=== PATIENT | female | born 1985 | race Caucasian/White ===

== ENCOUNTER 2017-12-16 13:59 | Emergency (ER) | payer MEDICAID ==
[~2017-12-16] VITALS: Ht 167.6 cm; Wt 122.7 kg
[2017-12-16 14:45] VITALS: BP 142/81
== END 2017-12-16 14:40 | disposition home or self-care (01) ==
LOC: ED 13:59
DX: S50.811A Abrasion of right forearm, initial encounter (principal); S61.441A Puncture wound with foreign body of right hand, initial encounter; W25.XXXA Contact with sharp glass, initial encounter; W45.8XXA Other foreign body or object entering through skin, initial encounter; Y92.009 Unspecified place in unspecified non-institutional (private) residence as the place of occurrence of the external cause; Z23 Encounter for immunization
CPT/HCPCS: 90715

== ENCOUNTER 2018-02-27 06:53 | Emergency (ER) | payer MEDICAID ==
[~2018-02-27] VITALS: Ht 167.6 cm; Wt 122.7 kg
[2018-02-27] MEDS ORDERED: ELIMITE60 G1 TP (07:30)
[2018-02-27] MEDS ORDERED: PREDNISONE20 M1 PO (07:30)
[2018-02-27 07:58] VITALS: BP 146/80
== END 2018-02-27 07:56 | disposition home or self-care (01) ==
LOC: ED 06:53
DX: S40.862A Insect bite (nonvenomous) of left upper arm, initial encounter (principal); S40.861A Insect bite (nonvenomous) of right upper arm, initial encounter; S80.862A Insect bite (nonvenomous), left lower leg, initial encounter; S80.861A Insect bite (nonvenomous), right lower leg, initial encounter; W57.XXXA Bitten or stung by nonvenomous insect and other nonvenomous arthropods, initial encounter; B86 Scabies; Y92.129 Unspecified place in nursing home as the place of occurrence of the external cause; Y99.0 Civilian activity done for income or pay; I10 Essential (primary) hypertension; F17.210 Nicotine dependence, cigarettes, uncomplicated
CPT/HCPCS: J1200; J2930

== ENCOUNTER 2018-05-13 17:45 | Emergency (ER) | payer MEDICAID ==
[~2018-05-13] VITALS: Ht 167.6 cm; Wt 118.2 kg
[~2018-05-13 17:45] MED LIST: ELIMITE60 G1 TP; PREDNISONE20 M1 PO
[2018-05-13 19:03] VITALS: BP 137/71
== END 2018-05-13 19:04 | disposition home or self-care (01) ==
LOC: ED 17:45
DX: M72.2 Plantar fascial fibromatosis (principal)

== ENCOUNTER 2018-08-21 05:37 | Emergency (ER) | payer MEDICAID ==
[2018-08-21] MEDS ORDERED: MULTIVITAMIN1 SGL PO (05:43)
[2018-08-21] MEDS ORDERED: PENICILLIN-VK500 M1 PO (06:46)
[2018-08-21] MEDS ORDERED: NAPROSYN500 M1 PO (06:46)
[2018-08-21 06:58] VITALS: BP 136/84
== END 2018-08-21 06:58 | disposition home or self-care (01) ==
LOC: ED 05:37
DX: S02.5XXA Fracture of tooth (traumatic), initial encounter for closed fracture (principal); F32.9 Major depressive disorder, single episode, unspecified; F41.9 Anxiety disorder, unspecified; F17.210 Nicotine dependence, cigarettes, uncomplicated; Z98.51 Tubal ligation status; Z90.89 Acquired absence of other organs
CPT/HCPCS: J1885

== ENCOUNTER 2020-01-02 09:03 | Outpatient (RCR) | payer OTHER ==
[~2020-01-02 09:03] MED LIST changes: +MULTIVITAMIN1 SGL PO; +NAPROSYN500 M1 PO; +PENICILLIN-VK500 M1 PO
== END 2020-02-17 | disposition home or self-care (01) ==
LOC: PT
DX: M25.512 Pain in left shoulder (principal)

== ENCOUNTER 2020-07-06 10:59 | Outpatient (RCR) | payer BC | END 2020-10-04 | disposition still patient (30) | LOC: PT | DX: M75.20 Bicipital tendinitis, unspecified shoulder (principal); M75.40 Impingement syndrome of unspecified shoulder; Z98.890 Other specified postprocedural states ==

== ENCOUNTER 2021-01-21 13:32 | Emergency (ER) | payer OTHER ==
[2021-01-21 13:40] VITALS: BP 164/91
[2021-01-21] MEDS ORDERED: TRAMADOL 50 MG TAB PO (14:03)
[2021-01-21] MEDS ORDERED: AUGMENTIN 875-1 EAC1 PO (14:03)
== END 2021-01-21 14:50 | disposition home or self-care (01) ==
LOC: ED 13:32
DX: K04.7 Periapical abscess without sinus (principal); K02.9 Dental caries, unspecified; F17.200 Nicotine dependence, unspecified, uncomplicated

== ENCOUNTER 2021-06-26 01:55 | Emergency (ER) | payer OTHER ==
[~2021-06-26] VITALS: Ht 167.6 cm; Wt 118.2 kg
[~2021-06-26 01:55] MED LIST changes: +AUGMENTIN 875-1 EAC1 PO; +TRAMADOL 50 MG TAB PO
[2021-06-26] MEDS ORDERED: ONE DAILY WOME1 EACH PO (02:05)
[2021-06-26 03:25] LABS: BASO # 0.05 K/mm3 (0.02-0.10); EOS # 0.21 K/mm3 (0.04-0.40); EOS % 2.3 % (1.0-5.0); HEMATOCRIT 40.5 % (37.0-47.0); HEMOGLOBIN 13.5 g/dL (12.5-16.0); LYMPH# 3.18 K/mm3 (1.50-4.00); MEAN CELL VOLUME 85 fl (78-100); MEAN CORPUSCULAR HEMOGLOBIN 28 pg (27-31); MEAN CORPUSCULAR HGB CONC 33 g/dL (33-37); MEAN PLATELET VOLUME 9.3 fl (7.4-10.4); MONO # 0.54 K/mm3 (0.20-0.80); PLATELET COUNT 266 K/mm3 (130-400); RED BLOOD COUNT 4.77 M/mm3 (4.10-5.30); RED CELL DISTRIBUTION WIDTH 12.3 % (11.5-14.5); WHITE BLOOD COUNT 9.2 K/mm3 (4.8-10.8)
[2021-06-26 03:45] LABS: PH-URINE 7.5 (5.0 - 8.0); URINE APPEARANCE CLEAR; URINE BILIRUBIN NEGATIVE (NEGATIVE); URINE BLOOD NEGATIVE (NEGATIVE); URINE COLOR STRAW; URINE GLUCOSE NEGATIVE (NEGATIVE); URINE KETONE NEGATIVE (NEGATIVE); URINE LEUKOCYTE ESTERASE NEGATIVE (NEGATIVE); URINE NITRATE NEGATIVE (NEGATIVE); URINE PROTEIN(semi-quant) NEGATIVE (NEGATIVE); URINE UROBILINOGEN NORMAL (NORMAL); URINE WBC 0-1 /hpf (0-3)
[2021-06-26 03:59] LABS: ALBUMIN 4.1 g/dL (3.5-5.0); POTASSIUM 4.1 mmol/L (3.5-5.1)
[2021-06-26 04:00] LABS: CALCIUM 9.4 mg/dL (8.3-10.5)
[2021-06-26 04:01] LABS: TOTAL PROTEIN 6.7 g/dL (6.4-8.3)
[2021-06-26 04:03] LABS: TOTAL BILIRUBIN 0.2 mg/dL (0.2-1.2)
[2021-06-26 05:05] VITALS: BP 117/65
== END 2021-06-26 05:05 | disposition home or self-care (01) ==
LOC: ED 01:55
PROVIDERS: Family Medicine
DX: R00.2 Palpitations (principal); F17.290 Nicotine dependence, other tobacco product, uncomplicated; Z28.311 Partially vaccinated for COVID-19

== ENCOUNTER 2024-04-30 21:19 | Emergency (ER) | payer OTHER ==
[~2024-04-30] VITALS: Ht 167.6 cm; Wt 113.6 kg
[~2024-04-30 21:19] MED LIST changes: +ONE DAILY WOME1 EACH PO
[2024-04-30 22:12] LABS: URINE APPEARANCE SLIGHTLY CLOUDY (CLEAR); URINE COLOR YELLOW (YELLOW)
[2024-04-30 22:13] LABS: URINE BILIRUBIN NEGATIVE (NEGATIVE); URINE BLOOD NEGATIVE (NEGATIVE); URINE GLUCOSE NEGATIVE (NEGATIVE); URINE KETONE NEGATIVE (NEGATIVE); URINE LEUKOCYTE ESTERASE NEGATIVE (NEGATIVE); URINE MUCUS PRESENT (NOT PRESENT); URINE NITRATE NEGATIVE (NEGATIVE); URINE PROTEIN(semi-quant) NEGATIVE (NEGATIVE)
[2024-05-01] MEDS ORDERED: MACROBID 100 M100 MG PO (02:07)
[2024-05-01] MEDS ORDERED: TIZANIDINE HYDRO2 M1 PO (02:11)
[2024-05-01] MEDS ORDERED: Nitrofurantoin (Mono/Macro) 100 MG CAPSULE PO ONE (02:15)
[2024-05-01] MEDS ORDERED: Home HYDROcodone/Acetaminophen 5/325 MG #4 TABS/PACK PO ONE (02:15)
[2024-05-01 02:25] VITALS: BP 122/73
== END 2024-05-01 02:26 | disposition home or self-care (01) ==
LOC: ED 21:19
PROVIDERS: Registered Nurse
DX: N30.90 Cystitis, unspecified without hematuria (principal); N39.41 Urge incontinence